=== PATIENT | male | born 1970 | race Two or more races ===

== ENCOUNTER 2022-01-09 05:34 | Day surgery (SDC) | payer OTHER ==
[~2022-01-09] VITALS: Ht 188 cm; Wt 83.9 kg
[~2022-01-09 05:34] MED LIST: CLARITIN-D 241 EACH PO; FLONASE16 GM IH; LANSOPRAZOLE30 MG PO
== END 2022-01-09 12:25 | disposition home or self-care (01) ==
LOC: CIR.AMB 05:34
PROVIDERS: ATTEND Surgery
DX: L72.0 Epidermal cyst (principal); Z91.013 Allergy to seafood